=== PATIENT | male | born 1955 | race Caucasian/White ===

== ENCOUNTER 2023-02-12 06:42 | Day surgery (SDC) | payer OTHER ==
[~2023-02-12] VITALS: Ht 172.7 cm; Wt 100.7 kg
[2023-02-12] MEDS ORDERED: MIDAZOLAM HCL 5 MG/5 ML VIAL ONE (06:54)
[2023-02-12] MEDS ORDERED: MEPERIDINE 50 MG/ML VIAL ONE (06:54)
[2023-02-12 13:44] VITALS: BP_SYST 115
== END 2023-02-12 09:20 | disposition home or self-care (01) ==
LOC: SDS 06:42 → SMU 06:45 → SDS 09:20
PROVIDERS: ATTEND Internal Medicine Gastroenterology
DX: Z12.11 Encounter for screening for malignant neoplasm of colon (principal); D12.4 Benign neoplasm of descending colon; Z80.0 Family history of malignant neoplasm of digestive organs; K76.0 Fatty (change of) liver, not elsewhere classified; I10 Essential (primary) hypertension; Z95.1 Presence of aortocoronary bypass graft; K64.8 Other hemorrhoids; I25.10 Atherosclerotic heart disease of native coronary artery without angina pectoris; E78.5 Hyperlipidemia, unspecified; Z87.891 Personal history of nicotine dependence; Z79.82 Long term (current) use of aspirin; Z79.899 Other long term (current) drug therapy
CPT/HCPCS: 45385; 88305; 99152; G0378; J2250; J2175